=== PATIENT | male | born 1975 | race Caucasian/White ===

== ENCOUNTER 2017-12-14 13:51 | Emergency (ER) | payer OTHER ==
[~2017-12-14] VITALS: Ht 185.4 cm; Wt 121.2 kg
[2017-12-14] MEDS ORDERED: ATEN25TA PO (16:19)
[2017-12-14] MEDS ORDERED: IMIP50TA PO (16:19)
[2017-12-14] MEDS ORDERED: SIMV40TA3 PO (16:19)
[2017-12-14] MEDS ORDERED: GABA300C10 PO (16:19)
[2017-12-14] MEDS ORDERED: MORPHINE SULFATE 4 MG/ML, 1ML ONE (16:27)
[2017-12-14] MEDS ORDERED: ONDANSETRON 2MG/ML, 2ML ONE (16:27)
[2017-12-14] MEDS ORDERED: ONDANSETRON 2MG/ML, 2ML IVPush ONE (16:30)
[2017-12-14] MEDS ORDERED: MORPHINE SULFATE 4 MG/ML, 1ML IVPush PRN (16:30)
[2017-12-14 16:32] LABS: BASOPHILS # (AUTO) 0.02 x10^3/uL (0-0.1); BASOPHILS % (AUTO) 0 % (0-1); EOSINOPHILS # (AUTO) 0.02 x10^3/uL (0-0.4); EOSINOPHILS % (AUTO) 0 % (1-7); LYMPHOCYTES % (AUTO) 16 % (22-44); MD NO; MEAN CORPUSCULAR HEMOGLOBIN 30.1 pg (27.5-34.5); MEAN CORPUSCULAR HGB CONC 34.2 g/dL (33.2-36.2); MEAN PLATELET VOLUME 8.8 fL (7.4-10.4); MONOCYTES # (AUTO) 0.47 x10^3/uL (0.2-0.8); MONOCYTES % (AUTO) 5 % (2-9); NEUTROPHILS # (AUTO) 6.87 x10^3/uL (1.8-6.8); NEUTROPHILS % (AUTO) 78 % (42-75); PLATELET COUNT 308 x10^3/uL (130-400); RED BLOOD COUNT 5.24 x10^6/uL (4.38-5.82); RED CELL DISTRIBUTION WIDTH 13.3 % (9.4-14.8)
[2017-12-14 16:35] LABS: MICROSCOPIC NOT IND
[2017-12-14 16:40] LABS: CULTURE INDICATED? NO
[2017-12-14 16:46] LABS: ALBUMIN 4.4 g/dL (3.4-5.0); ANION GAP 6 mmol/L (5-15); CALCIUM 8.8 mg/dL (8.5-10.1); CHLORIDE 105 mmol/L (98-107)
[2017-12-14 18:38] VITALS: BP 139/96
== END 2017-12-14 18:40 | disposition home or self-care (01) ==
LOC: ED 17:09
DX: M47.816 Spondylosis without myelopathy or radiculopathy, lumbar region (principal); Z87.442 Personal history of urinary calculi
CPT/HCPCS: 36415; 74018; 74176; 76770; 80048; 81003; 82040; 85025; 96374; 96375; 99285; J2405

== ENCOUNTER 2021-03-06 09:57 | Inpatient (IN) | payer OTHER ==
[~2021-03-06] VITALS: Ht 182.9 cm; Wt 114.4 kg
[~2021-03-06 09:57] MED LIST: ATEN25TA PO; GABA300C10 PO; IMIP50TA PO; SIMV40TA20 PO
[2021-03-06] MEDS ORDERED: LISI-170 PO (10:33)
[2021-03-06] MEDS ORDERED: ASPIRIN 81 MG TABLET CHEW PO ONE (11:00)
[2021-03-06] MEDS ORDERED: SODIUM CHLORIDE FLUSH 10ML SYR IVF ONE (11:00)
[2021-03-06] MEDS ORDERED: DILTIAZEM 5 MG/ML, 5ML IV ONE (11:00)
[2021-03-06 11:07] LABS: BASOPHILS % (AUTO) 0 % (0-1); EOSINOPHILS % (AUTO) 1 % (1-7); LYMPHOCYTES % (AUTO) 18 % (22-44); MEAN CORPUSCULAR HEMOGLOBIN 30.3 pg (27.5-34.5); MEAN CORPUSCULAR HGB CONC 34.8 g/dL (33.2-36.2); MEAN PLATELET VOLUME 8.8 fL (7.4-10.4); MONOCYTES % (AUTO) 7 % (2-9); NEUTROPHILS % (AUTO) 75 % (42-75); PLATELET COUNT 248 x10^3/uL (130-400); RED CELL DISTRIBUTION WIDTH 13.2 % (9.4-14.8)
[2021-03-06] MEDS ORDERED: ASPIRIN 81 MG TABLET CHEW ONE (11:07)
[2021-03-06] MEDS ORDERED: DILTIAZEM 5 MG/ML, 5ML ONE (11:07)
[2021-03-06 11:17] LABS: ALANINE AMINOTRANSFERASE 27 U/L (12-78); ALBUMIN 4.1 g/dL (3.4-5.0); ANION GAP 5 mmol/L (5-15); CALCIUM 9.2 mg/dL (8.5-10.1); CHLORIDE 112 mmol/L (98-107); CREATININE 0.95 mg/dL (0.7-1.3)
--- NOTE | 2021-03-06 11:17 | NUR ---
Assist RN: medicated patient per mar.
[2021-03-06 11:22] LABS: ALKALINE PHOSPHATASE 61 U/L (45-117); BILIRUBIN,TOTAL 0.7 mg/dL (0.2-1.0); TOTAL PROTEIN 7.5 g/dL (6.4-8.2); TROPONIN I < 0.015 ng/mL (0.000-0.045)
--- NOTE | 2021-03-06 12:58 | NUR ---
dr shelton spoke with dr ellington
[2021-03-06] MEDS ORDERED: LORazepam 1MG TABLET ONE (13:22)
--- NOTE | 2021-03-06 13:24 | NUR ---
PT AWARE OF PLAN FOR ADMIT. MED WITH [facility] NOTED. LOVENOX REQUEST SENT TO PHARM.
[2021-03-06] MEDS ORDERED: SODIUM CHLORIDE FLUSH 10ML SYR IVF PRN (13:30)
[2021-03-06] MEDS ORDERED: LORazepam 0.5MG TABLET PO ONE (13:30)
[2021-03-06] MEDS ORDERED: ENOXAPARIN 120MG/0.8ML SQ SCH (13:30)
[2021-03-06] MEDS ORDERED: NICOTINE 14MG/24 HR PATCH.TD24 ONE (13:51)
[2021-03-06] MEDS ORDERED: HEPARIN 5,000 UNITS/ML, 1ML ONE (13:51)
[2021-03-06] MEDS ORDERED: ONDANSETRON ODT 4 MG PO PRN (14:00)
[2021-03-06] MEDS ORDERED: HEPARIN 5,000 UNITS/ML, 1ML SQ SCH (14:00)
[2021-03-06] MEDS ORDERED: ONDANSETRON 2MG/ML, 2ML IVPush PRN (14:00)
[2021-03-06] MEDS ORDERED: NICOTINE 14MG/24 HR PATCH.TD24 TD ONE (14:00)
[2021-03-06] MEDS: SODIUM CHLORIDE 0.9% 1,000 ML IV SCH (14:03)
[2021-03-06 14:28] LABS: TROPONIN I < 0.015 ng/mL (0.000-0.045)
[2021-03-06 14:39] VITALS: BP 156/115
[2021-03-06] MEDS ORDERED: DIGOXIN 0.25 MG/ML, 2ML IVPush ONE (15:30)
[2021-03-06 15:37] VITALS: BP 154/111
[2021-03-06] MEDS: FLECAINIDE 100MG TABLET PO SCH (16:56)
[2021-03-06] MEDS ORDERED: CARVEDILOL 3.125 MG TABLET PO SCH (18:00)
[2021-03-06 19:48] LABS: TROPONIN I < 0.015 ng/mL (0.000-0.045)
[2021-03-06 19:51] VITALS: BP 147/96
[2021-03-06] MEDS: CARVEDILOL 12.5 MG TABLET PO SCH (20:31)
[2021-03-06] MEDS: APIXABAN 5 MG TABLET PO SCH (20:31)
[2021-03-07 02:18] VITALS: BP 136/87
[2021-03-07] MEDS: SODIUM CHLORIDE 0.9% 1,000 ML IV SCH (04:12)
[2021-03-07 05:17] LABS: CHOL/HDL RATIO 4.5
[2021-03-07 05:18] LABS: LDL/HDL RATIO 2.6 (0.5-3.0)
[2021-03-07 05:35] VITALS: BP 158/116
[2021-03-07] MEDS: FLECAINIDE 100MG TABLET PO SCH (05:36)
[2021-03-07] MEDS: CARVEDILOL 12.5 MG TABLET PO SCH ×2 (05:36→14:00)
[2021-03-07] MEDS ORDERED: ASPIRIN 325 MG TABLET EC PO SCH (06:00)
[2021-03-07 06:52] VITALS: BP 145/99
[2021-03-07] MEDS: APIXABAN 5 MG TABLET PO SCH (07:58)
[2021-03-07] MEDS ORDERED: REGADENOSON 0.4 MG/5 ML SYRINGE ONE (08:41)
[2021-03-07] MEDS ORDERED: LISINOPRIL 20 MG TABLET PO SCH (09:00)
[2021-03-07 12:16] VITALS: BP 152/98
[2021-03-07] MEDS ORDERED: CARV12.52 PO (12:17)
[2021-03-07] MEDS ORDERED: ASPI325T20 PO (12:17)
[2021-03-07] MEDS ORDERED: NICO1PAT31 TD (13:56)
[2021-03-07 14:00] VITALS: BP 179/109
== END 2021-03-07 14:51 | disposition home or self-care (01) | DRG 310 ==
LOC: ED 10:44 → EDIP 13:15 → 5SO 14:24
PROVIDERS: ADMIT Family Medicine; ATTEND Family Medicine
DX: I48.19 Other persistent atrial fibrillation (principal); E66.9 Obesity, unspecified; F10.10 Alcohol abuse, uncomplicated; F12.90 Cannabis use, unspecified, uncomplicated; F17.210 Nicotine dependence, cigarettes, uncomplicated; F41.0 Panic disorder [episodic paroxysmal anxiety]; G47.30 Sleep apnea, unspecified; F41.9 Anxiety disorder, unspecified; M19.90 Unspecified osteoarthritis, unspecified site; R07.89 Other chest pain; I10 Essential (primary) hypertension; M16.12 Unilateral primary osteoarthritis, left hip; Z82.49 Family history of ischemic heart disease and other diseases of the circulatory system; Z68.34 Body mass index [BMI] 34.0-34.9, adult; Z88.1 Allergy status to other antibiotic agents
CPT/HCPCS: 36415; 71045; 78452; 80053; 80061; 83735; 84436; 84443; 84484; 85025; 93005; 93017; 93306; 96374; 99285; G0378; J1644; J2785; A9502; J1160; J7030

== ENCOUNTER 2021-03-11 11:08 | Emergency (ER) | payer OTHER ==
[~2021-03-11] VITALS: Ht 182.9 cm; Wt 89.6 kg
[~2021-03-11 11:08] MED LIST changes: +ASPI325T20 PO; +CARV12.52 PO; +LISI-170 PO; +NICO1PAT31 TD
[2021-03-11] MEDS ORDERED: SODIUM CHLORIDE 0.9% 1,000 ML IV ONE (11:30)
[2021-03-11 11:50] LABS: BASOPHILS % (AUTO) 0 % (0-1); EOSINOPHILS % (AUTO) 1 % (1-7); LYMPHOCYTES % (AUTO) 24 % (22-44); MEAN CORPUSCULAR HEMOGLOBIN 30.4 pg (27.5-34.5); MEAN CORPUSCULAR HGB CONC 35.2 g/dL (33.2-36.2); MEAN PLATELET VOLUME 8.4 fL (7.4-10.4); MONOCYTES % (AUTO) 7 % (2-9); NEUTROPHILS % (AUTO) 67 % (42-75); PLATELET COUNT 257 x10^3/uL (130-400); RED BLOOD COUNT 4.87 x10^6/uL (4.38-5.82); RED CELL DISTRIBUTION WIDTH 13.1 % (9.4-14.8)
[2021-03-11 12:02] LABS: ALBUMIN 4.2 g/dL (3.4-5.0); ANION GAP 6 mmol/L (5-15); CALCIUM 9.7 mg/dL (8.5-10.1); CHLORIDE 107 mmol/L (98-107)
[2021-03-11 12:07] LABS: CREATININE 1.08 mg/dL (0.7-1.3); TROPONIN I < 0.015 ng/mL (0.000-0.045)
--- NOTE | 2021-03-11 13:30 | NUR ---
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
--- NOTE | 2021-03-11 13:47 | NUR ---
ED MD AT BEDSIDE FOR ASSESSMENT. NAD NOTED AT THIS TIME. PT SITTING UP, RESPIRATIONS EVEN AND UNLABORED ON RA. SIDE RAIL UP, CALL LIGHT IN REACH.
[2021-03-11] MEDS ORDERED: CARV-39 PO (13:54)
[2021-03-11] MEDS ORDERED: APIXABAN 5 MG TABLET PO ONE (14:30)
[2021-03-11] MEDS ORDERED: APIXABAN 5 MG TABLET ONE (14:52)
[2021-03-11 14:56] VITALS: BP 138/85
--- NOTE | 2021-03-11 15:08 | NUR ---
REPORT TO FARHAT WALTERS. PT AMBULATES WELL TO BATHROOM AND BACK IN BED.
--- NOTE | 2021-03-11 15:10 | NUR ---
Report from FARHAT Vargas. This RN to assume care.
== END 2021-03-11 15:53 | disposition home or self-care (01) ==
LOC: ED 13:52
DX: I48.0 Paroxysmal atrial fibrillation (principal); R55 Syncope and collapse; R07.89 Other chest pain; I10 Essential (primary) hypertension; F17.200 Nicotine dependence, unspecified, uncomplicated; Z88.1 Allergy status to other antibiotic agents
CPT/HCPCS: 36415; 70450; 71045; 80048; 82040; 83880; 84484; 85025; 93005; 99285